=== PATIENT | male | born 1945 | race Caucasian/White ===

== ENCOUNTER → 2017-11-13 | Outpatient (CLI) | payer MEDICARE, OTHER ==
[~2017-11-13] MED LIST: Advil200 M1; Gas-X125 MG PO; LORA10 PO; MOMENI; Multiple Vitam1 EAC1 PO; PSEU30; Percocet 5-3251 EACH PO; Sudogest30 MG PO; TRIA55OI; Toradol10 MG PO; Viagra100 MG PO
[2017-11-13 16:16] LABS: Hematocrit 39.1 % (37.0-53.0); Hemoglobin 13.4 g/dL (13.5-17.5); Mean Corpuscular HGB 31.9 pg (26.0-34.0); Mean Corpuscular HGB Conc 34.3 g/dL (31.5-36.5); Mean Corpuscular Volume 93 fL (80-100); Mean Platelet Volume 10.3 fL (9.1-12.4); Platelet Count 183 K/mm3 (150-400); RDW Coefficient Variation 12.8 % (11.7-14.2); RDW Standard Deviation 43.8 fL (35.1-46.3); White Blood Cell Count 7.38 K/mm3 (4.00-11.30)
[2017-11-13 16:28] LABS: Alanine Aminotransfer (ALT/SGP 34 U/L (12-78); Albumin, Blood 2.7 g/dL (3.4-5.0); Albumin/Globulin Ratio 0.6 (0.8-1.8); Alk Phos 81 U/L (50-136); Anion Gap 9 mmol/L (6-16); Aspartate Aminotrans (AST/SGOT 20 U/L (12-37); Bilirubin, Total 0.7 mg/dL (0.1-1.0); Blood Urea Nitrogen 16 mg/dL (8-24); Bun/Creatinine Ratio 16.4 (12.0-20.0); CO2, Blood 24 mmol/L (21-32); Calcium, Blood 9.1 mg/dL (8.5-10.1); Chloride, Blood 103 mmol/L (98-108); Creatinine, Blood 0.98 mg/dL (0.60-1.20); Globulin, Blood 4.2 g/dL (2.2-4.0); Glomerular Filtration Rate >60 (60-); Glucose, Blood 118 mg/dL (70-99); Potassium, Blood 4.5 mmol/L (3.5-5.5); Sodium, Blood 136 mmol/L (136-145); Total Protein, Blood 6.9 g/dL (6.4-8.2)
[2017-11-13 16:52] LABS: BAND PERCENT MAN 11 % (0-8); BASOPHILS ABSOLUTE MAN 0.07 K/mm3 (0.00-0.23); BASOPHILS PERCENT MAN 1 % (0-2); EOSINOPHILS PERCENT MAN 0 % (0-6); LYMPHOCYTES % ATYPICAL MANUAL 2 % (0-0); LYMPHOCYTES ABSOLUTE MAN 0.51 K/mm3 (0.84-5.20); LYMPHOCYTES PERCENT MAN 5 % (21-46); MONOCYTES ABSOLUTE MAN 0.51 K/mm3 (0.16-1.47); MONOCYTES PERCENT MAN 7 % (4-13); NEUTROPHILS ABSOLUTE MAN 6.27 K/mm3 (1.96-9.15); SEG NEUTROPHILS PERCENT MAN 74 % (41-73); TOTAL CELLS COUNTED 100
== END | disposition home or self-care (01) ==
LOC: LAB 15:40 → LAB SHORT 15:40
PROVIDERS: Emergency Medicine
DX: R51 Headache (principal); R53.83 Other fatigue
CPT/HCPCS: 80053; 85025

== ENCOUNTER 2022-03-23 07:38 | Day surgery (SDC) | payer MEDICARE, OTHER ==
[~2022-03-23] VITALS: Ht 167.6 cm; Wt 70.8 kg
== END 2022-03-23 09:51 | disposition home or self-care (01) ==
LOC: ORSCSDS 07:38
PROVIDERS: Internal Medicine Gastroenterology
PROC: 0DBK8ZX Excision of Ascending Colon, Via Natural or Artificial Opening Endoscopic, Diagnostic (ICD-10-PCS; principal; 2022-03-23 09:00)
DX: Z12.11 Encounter for screening for malignant neoplasm of colon (principal); D12.2 Benign neoplasm of ascending colon; K57.30 Diverticulosis of large intestine without perforation or abscess without bleeding; K64.8 Other hemorrhoids; Z80.0 Family history of malignant neoplasm of digestive organs; Z87.891 Personal history of nicotine dependence; K21.9 Gastro-esophageal reflux disease without esophagitis
CPT/HCPCS: 88305; J2704; J7120

== ENCOUNTER 2022-09-28 01:08 | Observation (INO) | payer MEDICARE, OTHER ==
[2022-09-28] VITALS (10 sets, daily range): BP systolic 135–161; BP diastolic 77–125
[~2022-09-28] VITALS: Ht 172.7 cm; Wt 72.1 kg
[2022-09-28 01:35] LABS: BASOPHILS ABSOLUTE AUTO 0.02 K/mm3 (0.00-0.23); BASOPHILS PERCENT AUTO 0 % (0-2); EOSINOPHILS ABSOLUTE AUTO 0.09 K/mm3 (0.00-0.68); EOSINOPHILS PERCENT AUTO 2 % (0-6); Hematocrit 39.6 % (37.0-53.0); IMMATURE GRAN ABSOLUTE AUTO 0.01 K/mm3 (0.00-0.10); IMMATURE GRAN PERCENT AUTO 0 % (0-1); LYMPHOCYTES ABSOLUTE AUTO 0.77 K/mm3 (0.84-5.20); LYMPHOCYTES PERCENT AUTO 13 % (21-46); MONOCYTES ABSOLUTE AUTO 0.67 K/mm3 (0.16-1.47); MONOCYTES PERCENT AUTO 12 % (4-13); Mean Corpuscular HGB 33.6 pg (26.0-34.0); Mean Corpuscular HGB Conc 35.4 g/dL (31.5-36.5); Mean Corpuscular Volume 95 fL (80-100); Mean Platelet Volume 9.9 fL (9.1-12.4); NEUTROPHILS ABSOLUTE AUTO 4.18 K/mm3 (1.96-9.15); NEUTROPHILS PERCENT AUTO 73 % (41-73); Platelet Count 158 K/mm3 (150-400); RDW Coefficient Variation 11.9 % (11.7-14.2); RDW Standard Deviation 41.5 fL (35.1-46.3); Red Blood Cell Count 4.17 M/mm3 (4.30-5.90); White Blood Cell Count 5.74 K/mm3 (4.00-11.30)
[2022-09-28 01:48] LABS: Alanine Aminotransfer (ALT/SGP 38 U/L (12-78); Albumin, Blood 3.6 g/dL (3.4-5.0); Albumin/Globulin Ratio 1.2 (0.8-1.8); Alk Phos 83 U/L (50-136); Anion Gap 5 mmol/L (6-16); Aspartate Aminotrans (AST/SGOT 39 U/L (12-37); Blood Urea Nitrogen 18 mg/dL (8-24); Bun/Creatinine Ratio 22.6 (12.0-20.0); CO2, Blood 27 mmol/L (21-32); Calcium, Blood 9.3 mg/dL (8.5-10.1); Chloride, Blood 105 mmol/L (98-108); Glomerular Filtration Rate 91 (60-); Glucose, Blood 113 mg/dL (70-99); Potassium, Blood 3.8 mmol/L (3.5-5.5); Sodium, Blood 137 mmol/L (136-145); Total Protein, Blood 6.6 g/dL (6.4-8.2)
[2022-09-28 03:31] LABS: Anti-Xa UFH, PHA Monitoring <0.10 IU/mL; International Normalized Ratio 1.06; Prothrombin Time Results 11.1 Sec (9.7-11.5)
[2022-09-28] MEDS ORDERED: MELO7.5 PO (03:49)
--- NOTE | 2022-09-28 04:20 | NUR ---
TRANSFER NOTE THIS RN RECEIVED REPORT FROM TRIXIE CONTRERAS IN THE ED VIA PHONE. PATIENT TRANSFERRED TO U 6 AT 0340. PATIENT AMBULATED FROM RNEY TO BED, STEADY GAIT NOTED. PT DENIES DIZZINESS, CHEST PAIN/PRESSURE, AND SOB AT REST AND WITH ACTIVITY. PATIENT ALERT AND ORIENTED FULLY. ABLE TO MAKE NEEDS KNOWN. LS CLEAR T/O. BS+. PPP. CLAY. EQUAL STRENGTH NOTED. HEP GTT INFUSING PER EMAR. BED IN LOWEST POSITION AND CALL LIGHT WITHIN REACH.
[2022-09-28 04:42] LABS: BASOPHILS ABSOLUTE AUTO 0.02 K/mm3 (0.00-0.23); BASOPHILS PERCENT AUTO 0 % (0-2); EOSINOPHILS ABSOLUTE AUTO 0.03 K/mm3 (0.00-0.68); EOSINOPHILS PERCENT AUTO 0 % (0-6); Hematocrit 38.5 % (37.0-53.0); Hemoglobin 13.4 g/dL (13.5-17.5); IMMATURE GRAN ABSOLUTE AUTO 0.01 K/mm3 (0.00-0.10); IMMATURE GRAN PERCENT AUTO 0 % (0-1); LYMPHOCYTES ABSOLUTE AUTO 0.35 K/mm3 (0.84-5.20); LYMPHOCYTES PERCENT AUTO 5 % (21-46); MONOCYTES ABSOLUTE AUTO 0.51 K/mm3 (0.16-1.47); MONOCYTES PERCENT AUTO 7 % (4-13); Mean Corpuscular HGB 33.4 pg (26.0-34.0); Mean Corpuscular HGB Conc 34.8 g/dL (31.5-36.5); Mean Corpuscular Volume 96 fL (80-100); Mean Platelet Volume 9.9 fL (9.1-12.4); NEUTROPHILS ABSOLUTE AUTO 5.99 K/mm3 (1.96-9.15); NEUTROPHILS PERCENT AUTO 87 % (41-73); Platelet Count 143 K/mm3 (150-400); RDW Standard Deviation 42.8 fL (35.1-46.3); Red Blood Cell Count 4.01 M/mm3 (4.30-5.90); White Blood Cell Count 6.91 K/mm3 (4.00-11.30)
[2022-09-28 05:08] LABS: CHOL/HDL RATIO 3.2; Cholesterol 194 mg/dL (50-200); HDL Cholesterol 61 mg/dL (>39); LDL/HDL RATIO 1.9; Low Density Lipoprotein Chol 114 mg/dL (0-110); Triglycerides 97 mg/dL (30-160); Very Low Density Lipoprot Chol 19 mg/dL (6-32)
[2022-09-28 05:20] LABS: Albumin, Blood 3.4 g/dL (3.4-5.0); Albumin/Globulin Ratio 1.2 (0.8-1.8); Bilirubin, Total 1.4 mg/dL (0.1-1.0); Bun/Creatinine Ratio 26.3 (12.0-20.0); Calcium, Blood 8.9 mg/dL (8.5-10.1); Creatinine, Blood 0.72 mg/dL (0.60-1.20); Globulin, Blood 2.9 g/dL (2.2-4.0); Potassium, Blood 3.8 mmol/L (3.5-5.5); Total Protein, Blood 6.3 g/dL (6.4-8.2)
--- NOTE | 2022-09-28 05:39 | NUR ---
SHIFT SUMMARY NO ACUTE CHANGES SINCE ARRIVAL TO UNIT AND SINCE PREVIOUS NOTE. PATIENT CONTINUES TO DENY CHEST PAIN/PRESSURE, SOB, AND DIZZINESS. SB WITH BBB AND OCCASIONAL PAC'S ON MONITOR WITH HR 40-50'S. OTHER VITALS STABLE. ABLE TO MAKE NEEDS KNOWN. HEP GTT INFUSING PER EMAR. BED IN LOWEST POSITION AND CALL LIGHT WITHIN REACH. THIS RN WILL CONTINUE TO MONITOR UNTIL SHIFT CHANGE AT 0700.
--- NOTE | 2022-09-28 12:10 | NUR ---
HEPARIN GTT SALINE LOCKED AT THIS TIME. IV RAC SPACE FLUSHED WITH 5 CC NS.
--- NOTE | 2022-09-28 13:10 | NUR ---
Call from imaging department; told that Dr. Evans is requesting Dr. Leach to call him directly regarding the CT scan.
--- NOTE | 2022-09-28 13:39 | NUR ---
Two unanswered calls to Dr. Leach to request that she call Dr. Evans. Left a message on voice mail.
--- NOTE | 2022-09-28 14:11 | NUR ---
Call from [facility]; states that Dr. Evans is still waiting for Dr. Leach to call him. Gave the tech Dr. Leach's number to facilitate communication.
--- NOTE | 2022-09-28 14:57 | NUR ---
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 He is sitting up in bed, calm, cooperative and without any visible nor verbalized anxiety or strain. His pain level remains unchanged at 3/10 as it was this morning. Pt advised not to get up out of bed, but to use the urinal for voiding, and to call staff for any needs, for increased symptoms, or questions. States that his was able to be on speaker phone while Dr. Leach was in the pt's room talking with him this afternoon. Explained to the patient that once a bed is available and an accepting cardiothoracic surgeon has accepted, that he will be transferred by ambulance to [facility].
--- NOTE | 2022-09-28 15:38 | NUR ---
Pt is lying in bed, cheerfully conversant with staff. spoke with his on the phone, and updated her on the plan for transfer and answered questions.
--- NOTE | 2022-09-28 16:04 | NUR ---
spoke with Kay on the phone.
--- NOTE | 2022-09-28 16:07 | NUR ---
Bed at [facility] has just been assigned: room # 4221. Nicardipine gtt will be started before transport, and transportation will be arranged by ground at this time.
--- NOTE | 2022-09-28 16:19 | NUR ---
NICARDIPINE gtt started at 25 cc/hour
--- NOTE | 2022-09-28 16:36 | NUR ---
Pt is picked up by EMS at this time, assisted to stretcher and on his way to [facility] at this time.
--- NOTE | 2022-09-28 16:48 | NUR ---
Telephone report was called to DIANE Oden, at [facility].
== END 2022-09-28 16:37 | disposition short-term general hospital (02) ==
LOC: ER 01:08 → PCU 01:09
PROVIDERS: Student in an Organized Health Care Education/Training Program; ADMIT Internal Medicine
DX: I71.019 Dissection of thoracic aorta, unspecified (principal); R07.81 Pleurodynia; R77.8 Other specified abnormalities of plasma proteins; I35.0 Nonrheumatic aortic (valve) stenosis; J30.9 Allergic rhinitis, unspecified; K21.9 Gastro-esophageal reflux disease without esophagitis; Z85.46 Personal history of malignant neoplasm of prostate; Z87.891 Personal history of nicotine dependence; Z88.2 Allergy status to sulfonamides; Z88.8 Allergy status to other drugs, medicaments and biological substances; Z79.899 Other long term (current) drug therapy
CPT/HCPCS: 36415; 71045; 71260; 80053; 80061; 84484; 85025; 85379; 85520; 85610; 85730; 93005; 93010; 94762; 96365; 96375; 99285-25; A9270; G0378; J1644; J7050; Q9967